=== PATIENT | female | born 1975 | race Caucasian/White ===

== ENCOUNTER 2022-08-02 06:34 | Day surgery (SDC) | payer OTHER ==
[~2022-08-02] VITALS: Ht 162.6 cm; Wt 78.0 kg
[2022-08-02] MEDS ORDERED: fentaNYL citrate 0.05 MG/ML VIAL ONE (07:28)
[2022-08-02] MEDS ORDERED: LIDOCAINE 2% 100 MG/5 ML UJET TP ONE (07:28)
[2022-08-02] MEDS ORDERED: MIDAZOLAM 2 MG/2 ML VIAL ONE (08:07)
[2022-08-02] MEDS ORDERED: MIDAZOLAM 2 MG/2 ML VIAL IVP ONE (08:50)
[2022-08-02] MEDS ORDERED: fentaNYL citrate 0.05 MG/ML VIAL IVP ONE (08:50)
== END 2022-08-02 09:40 | disposition home or self-care (01) ==
LOC: MDS 06:34 → MMU 06:35 → MDS 09:40
PROVIDERS: ATTEND Internal Medicine Gastroenterology
DX: Z12.11 Encounter for screening for malignant neoplasm of colon (principal); K57.30 Diverticulosis of large intestine without perforation or abscess without bleeding; K30 Functional dyspepsia; K21.9 Gastro-esophageal reflux disease without esophagitis; I10 Essential (primary) hypertension; E11.9 Type 2 diabetes mellitus without complications; E78.5 Hyperlipidemia, unspecified; Z90.49 Acquired absence of other specified parts of digestive tract; Z98.890 Other specified postprocedural states; Z88.5 Allergy status to narcotic agent; Z79.899 Other long term (current) drug therapy; Z20.822 Contact with and (suspected) exposure to COVID-19
CPT/HCPCS: 45378; 87426; J2250; J3010